=== PATIENT | female | born 1955 ===

== ENCOUNTER 2019-01-26 19:02 | Day surgery (SDC) | payer SELFPAY ==
[~2019-01-26] VITALS: Ht 165.1 cm; Wt 81.8 kg
[2019-01-26] MEDS ORDERED: SM M250T PO (19:42)
[2019-01-26] MEDS ORDERED: HYDR-3910 PO (19:42)
[2019-01-26] MEDS ORDERED: METO1TAB87 PO (19:42)
[2019-01-26] MEDS ORDERED: TRIA37.5 PO (19:42)
[2019-01-26] MEDS ORDERED: VITAD1000T PO (19:42)
[2019-01-26] MEDS ORDERED: CLON1TAB8 PO (19:42)
[2019-01-26] MEDS ORDERED: PROAAER10 INH (19:42)
[2019-01-26] MEDS ORDERED: OYST1TAB PO (19:42)
[2019-01-26] MEDS ORDERED: ALLE1TAB23 PO (19:42)
[2019-01-26] MEDS ORDERED: NAPR220C23 PO (19:42)
[2019-01-26] MEDS ORDERED: EVEN500C2 PO (19:42)
[2019-01-26] MEDS ORDERED: BUPIVACAINE/EPIN 0.25% 30 ML VIAL As Ordered ONE (19:52)
--- NOTE | 2019-01-26 20:02 | ED PDOC ---
Post-Departure Follow-Up DR LACEY AT BEDSIDE FOR PATIENT ARRIVAL. NO ED PROVIDER INVOLVED IN PATIENT'S CARE. NORMA AMBROCIO, Jan 26, 2019 20:02
[2019-01-26] MEDS ORDERED: PROPOFOL 200 MG/20 ML VIAL As Ordered ONE (20:45)
[2019-01-26] MEDS ORDERED: ACETAMINOPHEN TAB 650MG DOSE (2X325MG) PO PRN (20:45)
[2019-01-26] MEDS ORDERED: MIDAZOLAM INJ 2 MG/2 ML VIAL (J2250) As Ordered ONE (20:45)
[2019-01-26] MEDS ORDERED: SUGAMMADEX SODIUM 500 MG/5 ML VIAL (BRIDION) As Ordered ONE (20:45)
[2019-01-26] MEDS ORDERED: dexameTHASONE 4 MG/ML 1ML VIAL (J1100) As Ordered ONE (20:45)
[2019-01-26] MEDS ORDERED: ONDANSETRON 4MG/2ML VIAL (J2405) As Ordered ONE (20:45)
[2019-01-26] MEDS ORDERED: MORPHINE 4 MG/ML 1ML VIAL/SYRINGE (J2270) IV PRN (20:45)
[2019-01-26] MEDS ORDERED: fentaNYL 250 MCG/5 ML INJECTION (J3010) As Ordered ONE (20:45)
[2019-01-26] MEDS ORDERED: ROCURONIUM BROMIDE 50 MG/5 ML VIAL As Ordered ONE (20:45)
[2019-01-26] MEDS ORDERED: ONDANSETRON 4MG/2ML VIAL (J2405) IV PRN ×2 (20:45→21:45)
[2019-01-26] MEDS ORDERED: LIDOCAINE 2% INJ 100 MG/5 ML SDV (FOR ANES.) As Ordered ONE (20:45)
[2019-01-26] MEDS ORDERED: ACETAMINOPHEN 1000MG 100ML IV BTL (OFIRMEV) (J0131 PER 10MG) As Ordered ONE (20:46)
[2019-01-26] MEDS ORDERED: ZOSYN 3.375 GM VIAL (J2543) As Ordered ONE (20:49)
[2019-01-26] MEDS ORDERED: SENOKOT S TAB PO SCH (21:00)
[2019-01-26] MEDS ORDERED: ENOXAPARIN 40 MG/0.4 ML SYRINGE (J1650) SC SCH (21:00)
[2019-01-26] MEDS ORDERED: METOCLOPRAMIDE INJ 10MG/2ML VIAL (J2765) IV PRN (21:45)
[2019-01-26] MEDS ORDERED: MEPERIDINE INJ 25 MG/ML VIAL (J2175) IV PRN (21:45)
[2019-01-26] MEDS ORDERED: fentaNYL 100 MCG/2 ML INJECTION (J3010) IV PRN (21:45)
[2019-01-26] MEDS ORDERED: LR 1,000 ML IV SCH (21:45)
[2019-01-26 22:00] VITALS: BP 132/72
[2019-01-26] MEDS: KCL 20MEQ IN D5/0.45NS 1000ML 1,000 ML IV SCH (22:23)
[2019-01-26] MEDS: NORCO, ANEXSIA 5/325MG TABLET (HYDROcodone/ACETAMINOPHEN) PO PRN (22:24)
[2019-01-26 22:30] VITALS: BP 135/82
[2019-01-26] MEDS: PIPERACILLIN/TAZOBACTAM SOD 3.375 GM in D5W MINI-BAG PLUS 50 ML IV SCH (22:54)
[2019-01-26 23:00] VITALS: BP 128/75
[2019-01-27] VITALS: BP 136/70
[2019-01-27 01:00] VITALS: BP 128/61
[2019-01-27 02:00] VITALS: BP 146/71
[2019-01-27 03:00] VITALS: BP 139/73
[2019-01-27] MEDS: NORCO, ANEXSIA 5/325MG TABLET (HYDROcodone/ACETAMINOPHEN) PO PRN ×2 (05:11→10:20)
[2019-01-27] MEDS: PIPERACILLIN/TAZOBACTAM SOD 3.375 GM in D5W MINI-BAG PLUS 50 ML IV SCH (05:11)
[2019-01-27 05:30] VITALS: BP 130/65
[2019-01-27 08:00] VITALS: BP 107/57
[2019-01-27] MEDS: KCL 20MEQ IN D5/0.45NS 1000ML 1,000 ML IV SCH (08:08)
--- NOTE | 2019-01-27 08:10 | HPE ---
DATE OF ADMISSION: 01/26/2019 RESULT FOR CONSULTATION: Abdominal pain. HISTORY OF PRESENT ILLNESS: The patient is a 63-year-old female who was transferred here from [facility] with right lower quadrant pain and found have acute appendicitis. She had a slightly elevated white count there as well as CT findings positive for appendicitis. Recommendation was for transfer here. Here she is still having significant pain. No nausea or vomiting. All of her symptoms started early this morning, woke her up from sleep, she went back to bed, when she woke up in the morning it was even worse and that is what brought her to the emergency room. It took awhile for to get any imaging done because they are unable to start on IV for the CAT scan and ended up doing the CT without contrast which was still positive for the appendicitis. PAST MEDICAL HISTORY: Hypertension. PAST SURGICAL HISTORY: Abdominal hysterectomy and a left hip. ALLERGIES: TORADOL, LOSARTAN, OXYCODONE. HOME MEDICATIONS: Please see medical record. REVIEW OF SYSTEMS: Pertinent positive and negatives as stated in history of present illness. SOCIAL HISTORY: Denies drug, alcohol, or tobacco abuse. FAMILY HISTORY: Noncontributory. PHYSICAL EXAMINATION: GENERAL: Alert and oriented times three. No acute stress. VITALS: Temperature 97.6, pulse 67, respirations 16, blood pressure 174/72, pulse ox 95% room air. HEENT: Pupils equal round react to light and accommodation. HEART: S1, S2, regular rate and rhythm. LUNGS: Clear to auscultation bilaterally. ABDOMEN: Soft, tender to palpation of right lower quadrant. Localized guarding and no rigidity. EXTREMITIES: No clubbing, cyanosis or edema. LABS: Were reviewed from outside hospital, all within normal limits except for slightly elevated white count. CT scan showed a thickened dilated appendix. No signs of any perforation. ASSESSMENT: The patient is a 63-year-old female with acute appendicitis. Recommendations were to take to the operating room for lap/neeraj. At the present risk of procedure not limited but including bleeding, infection, hernia formation, damage to surrounding structure, need for further surgery were discussed in detail. Informed consent was obtained. The procedure was explained. Postoperatively I will keep her overnight not just because is t is so late in the evening already. As long as she is doing well morning we will plan for discharge home first thing morning.
[2019-01-27 09:21] LABS: HEMATOCRIT 35.2 % (36.0-47.0); HEMOGLOBIN 11.9 g/dl (12.0-15.5); MEAN CORPUSCULAR HEMOGLOBIN 32.2 pg (27.0-33.0); MEAN CORPUSCULAR HGB CONC 33.8 g/dl (32.0-36.5); MEAN CORPUSCULAR VOLUME 95.1 fl (80.0-96.0); PLATELET COUNT, AUTOMATED 295 10^3/uL (150-450); WHITE BLOOD COUNT 10.6 10^3/uL (4.0-10.0)
--- NOTE | 2019-01-29 19:17 | DSES ---
DATE OF ADMISSION: 01/26/2019 DATE OF DISCHARGE: 01/27/2019 ADMISSION DIAGNOSIS: Appendicitis. DISCHARGE DIAGNOSIS: Appendicitis. HOSPITAL COURSE: The patient is a 63-year-old female who was transferred here from [place] yesterday for appendicitis. She was brought to the operating room last evening for a laparoscopic appendectomy. This morning, she feels great. Her pain is a 1/10 or a 2/10. She is tolerating a diet, ate all of her breakfast already, and she has been ambulating and urinating without any problems. Her white count returned this morning at 10.6. The plan is to discharge her home this morning. She does not ask for anything for pain control. No need for any more antibiotics. She can shower starting tonight or tomorrow morning. No baths for five days. No lifting more than 20 pounds for two weeks and she will followup me in the office in two weeks. All of her questions are answered and she will be discharged shortly.
--- NOTE | 2019-01-30 23:02 | RO ---
DATE OF PROCEDURE: 01/26/2019 PREOPERATIVE DIAGNOSIS: Acute appendicitis. POSTOPERATIVE DIAGNOSIS: Acute appendicitis. PROCEDURE: Laparoscopic appendectomy. SURGEON: Dr. Domingo Mayers RESULTS TECHNICIAN: None. ANESTHESIA: General. ESTIMATED BLOOD LOSS: 5 mL. COMPLICATIONS: None. INDICATIONS FOR PROCEDURE: The patient is a 63-year-old female who presents with acute appendicitis. Recommendation was laparoscopic appendectomy. The risks and benefits of the procedure not limited to but including bleeding, infection, hernia formation, damage to surrounding structures and need for further surgery were discussed in detail with the patient. Informed consent was obtained and procedure was planned. DESCRIPTION OF PROCEDURE: The patient was brought back to operating room three, after sufficient sedation, the abdomen was sterilely prepped and draped. Next, a time-out was done to confirm proper patient, proper procedure. Following that, 5 mm incision made in the left upper quadrant, Veress needle was inserted and the abdomen was insufflated to 15 mmHg. Next, the Veress needle was removed and a 5 mm Optiview port was used to gain access to the abdomen. Once the abdomen was entered, another 5 mm port was placed suprapubically, another 8 mm port supraumbilically in the midline. Next, the right lower quadrant was examined. The appendix was lateral, it was elevated up in the air. Mesoappendix was taken down to the base of the appendix with the Enseal. The base of the appendix was then ligated with two PDS Endoloops and then amputated using the Enseal. Appendix was placed inside of an EndoCatch bag, brought out through the supraumbilical port site in a 5 mm EndoCatch bag. The abdomen was then desufflated. Skin incisions were closed with #4-0 Vicryl subcuticular sutures. The abdomen was cleaned and dried. Steri-Strips, 4x4 and tape were applied thus ending procedure.
== END 2019-01-27 10:30 | disposition home or self-care (01) ==
LOC: M ED 20:29 → M SDC 20:32 → M PED 21:55 → M SDC 01-27 10:30
PROVIDERS: ATTEND Surgery
DX: K35.890 Other acute appendicitis without perforation or gangrene (principal); I10 Essential (primary) hypertension; J44.9 Chronic obstructive pulmonary disease, unspecified; Z79.899 Other long term (current) drug therapy; F17.210 Nicotine dependence, cigarettes, uncomplicated
CPT/HCPCS: 36415; 44970; 85027; 88302; 96365; 96366; 96372; 99284; J0131; J1100; J1650; J2250; J2405; J2543; J3010